=== PATIENT | female | born 1965 | race Caucasian/White ===

== ENCOUNTER → 2018-07-23 14:12 | Outpatient (CLI) | payer OTHER, MEDICAID, SELFPAY ==
--- NOTE | 2018-07-23 | DI.MRI.S_ITS ---
PROCEDURE: MR SHOULDER RT WO CON INDICATIONS: DISFUNCTION OF ROTATOR CUFF. Right shoulder pain TECHNIQUE: Noncontrast oblique coronal T2 fast spin echo with fat saturation, oblique sagittal T1 spin echo and T2 fast spin echo with fat saturation, axial T1 spin echo and T2 fast spin echo with fat saturation through the shoulder. COMPARISON: None. FINDINGS: Image quality: Excellent. Rotator cuff: Small region of articular surface fluid signal intensity within the mid subscapularis tendon at the humeral insertion site. Mild T2 signal elevation within the supraspinatus and infraspinatus tendons at the humeral insertion site, indicating tendinopathy. The supraspinatus, infraspinatus, and subscapularis tendons otherwise appear intact throughout. Sagittal images demonstrate no muscle atrophy. Bones and bursae: No bone marrow contusions or fractures. Moderate acromioclavicular joint degeneration. The acromion demonstrates conventional anatomy, without an os acromiale. Minimal subacromial-subdeltoid or subcoracoid bursal fluid is present. Capsule and soft tissues: In the absence of intra-articular contrast, the labrum and glenohumeral ligaments appear intact. The long head of the biceps tendon demonstrates normal location and morphology. The rotator interval appears normal, without fibrosis. The coracohumeral ligament is normal in thickness. IMPRESSION: 1. Supraspinatus and infraspinatus tendinopathy. 2. Low-grade partial-thickness articular surface tear of the subscapularis tendon. 3. Minimal subacromial bursitis. 4. Acromioclavicular joint osteoarthritis. Dictated by: Eboni Morrison M.D. on 07/23/2018 at 15:20 Approved by: Eboni Morrison M.D. on 07/23/2018 at 15:26
== END ==
PROVIDERS: PCP Family Medicine; Visit Provider Physician Assistant
DX: M75.111 Incomplete rotator cuff tear or rupture of right shoulder, not specified as traumatic (principal); M25.511 Pain in right shoulder; M19.011 Primary osteoarthritis, right shoulder
CPT/HCPCS: 73221

== ENCOUNTER → 2024-10-19 10:57 | Outpatient (CLI) | payer OTHER, SELFPAY ==
--- NOTE | 2024-10-19 11:00 | DI.MRI.S_ITS ---
PROCEDURE: MR ELBOW RT WO CON INDICATIONS: ongoing rt elbow pain TECHNIQUE: Noncontrast coronal proton density fast spin echo and T2 fast spin echo with fat saturation, axial and sagittal T1 spin echo and T2 fast spin echo with fat saturation through the elbow. COMPARISON: None. FINDINGS: Image quality: Excellent. Lateral structures: The radial collateral ligament is thickened at its insertion on lateral epicondyle. The overlying common extensor tendon also appears mildly thickened at its lateral epicondylar insertion.. Medial structures: The ulnar collateral ligament appears thickened with intrasubstance T2 hyperintense signal at its medial epicondylar insertion. The overlying common flexor tendon appears thickened with intrasubstance T2 hyperintense signal and surrounding edema at its medial epicondylar insertion.. The ulnar nerve appears normal in size and signal within the cubital tunnel. Anterior structures: The biceps and brachialis tendons both appear intact as they insert onto the proximal radius and ulna, respectively. No bicipitoradial bursal fluid. The median and radial neurovascular bundles appear normal; no focal muscle atrophy to suggest nerve impingement. Posterior structures: The conjoint triceps tendon from the long and lateral heads appears intact. The medial head of the triceps tendon also appears normal, with direct muscle insertion onto the olecranon. No olecranon bursal fluid. Bone and cartilage: No bone marrow contusions or fractures. No osteochondral injuries. IMPRESSION: 1. Finding is suggestive of [id number] medial epicondylitis with low-grade partial-thickness tear involving proximal nerve collateral ligament and low-grade partial-thickness tear involving common flexor tendon origin. 2. Suggestion of mild lateral epicondylitis with tendinosis involving common extensor tendon origin and low-grade sprain involving radial collateral ligament. 3. No other muscle or tendon signal abnormalities. 4. No marrow edema. No fracture or dislocation. Dictated by: Eitan Mcgraw M.D. on 10/19/2024 at 22:09 Approved by: Eitan Mcgraw M.D. on 10/19/2024 at 22:27
== END ==
PROVIDERS: PCP Family Medicine; Referring Provider Student in an Organized Health Care Education/Training Program; Visit Provider Student in an Organized Health Care Education/Training Program
DX: M77.11 Lateral epicondylitis, right elbow (principal); S53.431A Radial collateral ligament sprain of right elbow, initial encounter; M25.521 Pain in right elbow
CPT/HCPCS: 73221